=== PATIENT | female | born 2005 | race Caucasian/White ===

== ENCOUNTER → 2024-01-09 10:29 | Outpatient (REF) | payer BC, SELFPAY | LOC: RAD 10:29 | PROVIDERS: ATTENDING PHYSICIAN Otolaryngology; FAMILY PHYSICIAN Family Medicine | DX: J32.8 Other chronic sinusitis (principal) | CPT/HCPCS: 70486 ==

== ENCOUNTER → 2024-02-08 10:41 | Outpatient (REF) | payer BC, SELFPAY | LOC: RAD 10:41 | PROVIDERS: ATTENDING PHYSICIAN Family Medicine | DX: J20.9 Acute bronchitis, unspecified (principal) | CPT/HCPCS: 71046 ==

== ENCOUNTER 2024-08-13 06:25 | Day surgery (SDC) | payer BC, SELFPAY ==
[2024-08-13] VITALS (8 sets, daily range): BP systolic 106–120; BP diastolic 57–78; BMI 21.9
[2024-08-13] MEDS: NORMOSOL-R/PLASMALYTE-A 1000 IV (11:42)
[2024-08-13] MEDS: DILAUDID 0.5 MG IV (15:10)
[2024-08-13] MEDS: ZOFRAN 4 MG IV (15:16)
[2024-08-13] MEDS: MOTRIN 600 MG PO (16:38)
== END 2024-08-13 17:08 | disposition home or self-care (01) ==
LOC: SDS 06:25
PROVIDERS: ATTENDING PHYSICIAN Otolaryngology
DX: J34.2 Deviated nasal septum (principal); J32.9 Chronic sinusitis, unspecified
CPT/HCPCS: 31257; 30520; 31267; 88304; 88311; 85018